=== PATIENT | female | born 1980 | race Caucasian/White ===

== ENCOUNTER 2019-06-06 20:33 | Observation (INO) ==
[2019-06-07] MEDS ORDERED: Naloxone 0.4 MG/ML INJ IVP PRN (00:48)
[2019-06-07] MEDS ORDERED: D5% in Water 1,000 ML IVC PRN ×2 (00:50→05:14)
[2019-06-07] MEDS ORDERED: *HR* Dextrose 50 % in Water (Syg) 50 ML SYRINGE IVP PRN ×2 (00:50→05:14)
[2019-06-07] MEDS ORDERED: Dextrose Gel 15 GM/37.5 ML TUBE PO PRN ×4 (00:50→05:14)
[2019-06-07] MEDS ORDERED: Furosemide 40 MG/4 ML VIAL IVP SCH (00:51)
[2019-06-07] MEDS ORDERED: *HR* Heparin 5,000 UNIT/ML VIAL IVP PRN ×2 (01:07)
[2019-06-07] MEDS ORDERED: Heparin 25,000 UNIT/250 ML D5W 25,000 UNIT/250 ML IV.SOLN IVC SCH (01:15)
[2019-06-07 01:36] LABS: Hematocrit 43.3 % (35.3-44.9); Hemoglobin 14.5 g/dL (11.5-15.4); Mean Corpuscular HGB Conc 33.5 g/dL (31.6-35.5); Mean Corpuscular Hemoglobin 29.5 pg (28.0-33.3); Mean Corpuscular Volume 88.2 fL (83.0-100.0); Platelet Count 179 K/mcL (140-400); Red Blood Count 4.91 M/mcL (3.82-4.97); Red Cell Distribution Width 14.6 % (11.5-14.5)
[2019-06-07 01:40] LABS: VBG HCO3 25 mEq/L (21-27); VBG PCO2 35 mmHg (41-51); VBG PH 7.45 pH Units (7.32-7.42); VBG PO2 84 mmHg (25-50)
[2019-06-07 01:41] LABS: Heparin anti-factor XA UFH 0.32 IU/mL (0.30-0.70); INR 1.3; Prothrombin Time 15.2 Seconds (9.4-12.1)
[2019-06-07] MEDS ORDERED: Isovue-370 500 ML BOTTLE IVP ONE (04:08)
[2019-06-07] MEDS ORDERED: Insulin LISPRO 300 UNITS/3 ML VIAL SQ SCH ×2 (06:00)
[2019-06-07 06:20] VITALS: BP 112/89
[2019-06-07] MEDS ORDERED: Nitrofurantoin (BID) 100 MG CAPSULE PO SCH (09:00)
[2019-06-07] MEDS ORDERED: risperiDONE 1 MG TABLET PO SCH (09:00)
== END 2019-06-07 07:50 | disposition other institution (70) ==
LOC: CDU
PROVIDERS: ADMIT Family Medicine; ATTEND Family Medicine